=== PATIENT | female | born 2000 | race Caucasian/White ===

== ENCOUNTER 2019-01-19 20:07 | Emergency (ER) | payer OTHER ==
--- NOTE | 2019-01-19 20:03 | EDPHY ---
H & P Time Seen by Provider: 01/19/19 20:05 Constitutional: Initial Vital Signs Temperature (C) 36.6 C 01/19/19 20:07 Heart Rate 108 H 01/19/19 20:07 Respiratory Rate 18 01/19/19 20:07 Blood Pressure 117/83 H 01/19/19 20:07 O2 Sat (%) 100 01/19/19 20:07 O2 Delivery Mode Room Air Allergies/Adverse Reactions: Milk Containing Products [dairy] Allergy (Severe, Verified 01/19/19 20:17) Anaphylaxis Beef Containing Products [beef] Allergy (Verified 01/19/19 20:17) egg [eggs] Allergy (Verified 01/19/19 20:17) peanut Allergy (Verified 01/19/19 20:17) Pork/Porcine Containing Products [pork] Allergy (Verified 01/19/19 20:17) sesame oil [Sesame] Allergy (Verified 01/19/19 20:17) shellfish derived Allergy (Verified 01/19/19 20:17) tree nut Allergy (Verified 01/19/19 20:17) Home Medications: Medication Instructions Recorded Control 01/19/19 EPINEPHrine 01/19/19 Famotidine [Pepcid 20 MG (OTC)] 20 mg PO DAILY #5 tab 01/19/19 Prozac 10 MG (*) 01/19/19 predniSONE 40 mg PO DAILY #10 tab 01/19/19 Medical Decision Making ED Course/Re-evaluation: CHIEF COMPLAINT: Allergic reaction HISTORY OF PRESENT ILLNESS: The patient is a 18 y/o female with a history of a dairy allergy arriving via EMS for an allergic reaction. The patient ate something with dairy and subsequently started to have tongue swelling, shortness of breath, and hives on her face and stomach. She had difficulty using her epi pen and called EMS. EMS gave the patient 0.3mg IV Epinephrine, 50mg IV Benadryl, and Solu-Medrol. The patients' symptoms improved after medication and her vitals remained stable. She now has a mildly swollen tongue and carpal pedal spasms. No fever, headache , body aches, lightheadedness, chest pain, heart palpitations, shortness of breath, cough, abdominal pain, urinary or bowel complaints, numbness, paresthesias. REVIEW OF SYSTEMS: A comprehensive 10 system review of systems is otherwise negative aside from elements mentioned in the history of present illness and medical decision making. PHYSICAL EXAM: HR, BP, O2 Sat, RR. Temp noted General Appearance: Carpal pedal spasms. Alert, well hydrated, appropriate, and non-toxic appearing. Head: Atraumatic without scalp tenderness or obvious injury Eyes: Pupils equal, round, reactive to light and accommodation, EOMI, no trauma , no injection. Ears: Clear bilaterally, no perforation, normal landmarks Nose: Atraumatic, no rhinorrhea, clear. Throat: Angioedema present. There is no erythema or exudates, no lesions, normal tonsils, mucus membranes moist. Neck: Supple, 2+ carotid upstroke, nontender, no lymphadenopathy. Respiratory: No retractions, no distress, no wheezes, and no accessory muscle use. Lungs are clear to auscultation bilaterally. Cardiovascular: Tachycardic, no murmurs, rubs, or gallops. Bilateral carotid, radial, dorsalis pedis, and posterior tibial pulses intact. Good capillary refill all extremities. Gastrointestinal: Abdomen is soft, nontender, non-distended, no masses, no rebound, no guarding, no peritoneal signs. Musculoskeletal: Normal active ROM of all extremities, atraumatic. Neurological: Alert, appropriate, and interactive. The patient has normal DTRs and non-focal cranial nerves, motor, sensory, and cerebellar exam. Skin: No rashes, good turgor, no nodules on palpation. Past medical history: Denies Past surgical history: Denies Family history: Denies Social history: Mother at bedside, student at , single DIAGNOSTICS/PROCEDURES/CRITICAL CARE TIME: Not indicated DIFFERENTIAL DIAGNOSIS: The differential diagnosis included but was not limited to angioedema, anaphylaxis, anaphylactoid reaction, urticarial reaction, and other infectious causes for skin rash. MEDICAL DECISION MAKING: The patient is a 18 y/o female with a history of a dairy allergy arriving via EMS for an allergic reaction to dairy. The patient initially had shortness of breath, hives on her face and stomach, and angioedema. After 0.3mg IV Epinephrine, 50mg IV Benadryl, and Solu-Medrol the patient's symptoms improved. She now has carpal pedal spasms, angioedema, and is tachycardic. The hives and shortness of breath have resolved and I do not hear any wheezes. 40mg IV Pepcid administered. 2007: I met EMS upon arrival. 2022: Reassessed patient, her symptoms continue to improve. I will give her an additional 25mg IV Benadryl. 2026: Reassessed patient, she continues to feel better and no longer has angioedema. I have prescribed her Pepcid and Prednisone. Return precautions provided; patient is comfortable with this plan. - Data Points Medications Given: Discontinued Medications Diphenhydramine HCl (Benadryl Injection) 25 mg IVP EDNOW ONE Stop: 01/19/19 20:26 Last Admin: 01/19/19 20:27 Dose: 25 mg Famotidine (Pepcid) 40 mg IVP EDNOW ONE Stop: 01/19/19 20:21 Last Admin: 01/19/19 20: Dose: 40 mg Departure - Departure Disposition: Home, Routine, Self-Care Clinical Impression: Acute anaphylaxis Qualifiers: Encounter type: initial encounter Qualified Code(s): T78.2XXA - Anaphylactic shock, unspecified, initial encounter Allergic reaction Qualifiers: Encounter type: initial encounter Qualified Code(s): T78.40XA - Allergy, unspecified, initial encounter Condition: Good Instructions: Anaphylaxis (ED), Allergies (ED) Additional Instructions: 1. Follow-up with your primary doctor within 72 hours. 2. Use [id number] Benadryl as directed for itching. 3. Take Pepcid and Prednisone as prescribed. 4. Return to the Emergency Department for shortness of breath, difficulty swallowing, difficulty breathing, worsening of rash, fever or other worsening of condition. 5. When symptoms have completely subsided, follow up with an rock star soon as possible to determine the cause of the allergic reaction. 6. Use EpiPen in case of allergic emergency. Referrals: [facility],. [Clinic] - As per Instructions [facility],. [Clinic] - As per Instructions Prescriptions: Famotidine [Pepcid 20 MG (OTC)] 20 mg PO DAILY #5 tab predniSONE 40 mg PO DAILY #10 tab Report Scribed for: Sridhar Lantigua Report Scribed by: Majo Degroot Date of Report: 01/19/19 Time of Report: 20:05
[2019-01-19] MEDS ORDERED: FAMOTIDINE 20 MG/2 ML SDV ONE (20:10)
[2019-01-19] MEDS ORDERED: FAMOTIDINE 20 MG TAB ONE (20:11)
[2019-01-19] MEDS ORDERED: FAMOTIDINE 20 MG/2 ML SDV IVP ONE (20:20)
[2019-01-19 21:17] VITALS: BP 124/81
== END 2019-01-19 21:15 | disposition home or self-care (01) ==
LOC: EDUNIT#
DX: L50.0 Allergic urticaria (principal); T78.07XA Anaphylactic reaction due to milk and dairy products, initial encounter
CPT/HCPCS: 96374; J1200